=== PATIENT | male | born 1960 | race African-American/Black ===

== ENCOUNTER 2018-06-08 14:58 | Outpatient (CLI) | payer OTHER ==
--- NOTE | 2018-06-08 17:06 | ULT ---
RENAL SONOGRAM 06/08/18 HISTORY: Renal insufficiency. FINDINGS: The right kidney is 11.1 cm and left is 10.1 cm. each has a normal sonographic appearance without sumeet dence of mass, stone, or hydronephrosis. Urinary bladder is decompressed. IMPRESSION: No evidence of urinary tract obstruction. No significant abnormalities are demonstrated. POS: [facility]
== END 2018-06-08 14:59 | disposition home or self-care (01) ==
LOC: SCSULT 14:58
PROVIDERS: ATTEND Internal Medicine Nephrology
DX: N18.3 Chronic kidney disease, stage 3 (moderate) (principal)
CPT/HCPCS: 76770

== ENCOUNTER 2022-04-02 14:13 | Outpatient (CLI) | payer OTHER | END 2022-04-02 14:14 | disposition home or self-care (01) | LOC: BICRAD 14:13 | PROVIDERS: ATTEND Internal Medicine Cardiovascular Disease | DX: R06.02 Shortness of breath (principal); R91.8 Other nonspecific abnormal finding of lung field | CPT/HCPCS: 71046 ==

== ENCOUNTER 2022-06-15 15:57 | Observation (INO) | payer OTHER ==
[2022-06-15 16:59] VITALS: BMI 38.6
[2022-06-15] MEDS ORDERED: Communication Order-Pharmacy FS SCH (20:15)
[2022-06-15] MEDS: Sodium Chloride 0.9% 1,000 ML IV SCH (21:00)
[2022-06-16 03:05] LABS: SARS-CoV-2 NAA Rapid Test Not Detected (NotDetected)
[2022-06-16] MEDS: Sodium Chloride 0.9% 1,000 ML IV SCH ×2 (06:28→16:44)
[2022-06-16 08:12] LABS: ALT (SGPT) 30 U/L (8-55); AST (SGOT) 35 U/L (5-34); Albumin 3.7 g/dL (3.4-4.8); Alkaline Phosphatase 79 U/L (40-110); Anion Gap 16 mmol/L (10-20); BUN (Urea Nitrogen) 15 mg/dL (8.4-25.7); Bilirubin, Total 0.9 mg/dL (0.2-1.2); Calc. Creatinine Clearance 78 mL/min (70-130); Calcium 9.2 mg/dL (7.8-10.44); Carbon Dioxide 15 mmol/L (23-31); Chloride 110 mmol/L (98-107); Estimated GFR 40; Globulin 3.9 g/dL (2.4-3.5); Glucose 108 mg/dL (80-115); Potassium 4.6 mmol/L (3.5-5.1); Protein, Total 7.6 g/dL (5.8-8.1); Sodium 136 mmol/L (136-145)
[2022-06-16] MEDS ORDERED: Lidocaine 1% (PF) 30 ML VIAL ONE (08:29)
[2022-06-16] MEDS ORDERED: Verapamil 5 MG/2 ML VIAL ONE (08:29)
[2022-06-16] MEDS ORDERED: Lidocaine 1% PF 5 ML VIAL ONE (08:29)
[2022-06-16] MEDS ORDERED: Nitroglycerin 100MG/250ML BOT 250 ML ONE (08:29)
[2022-06-16] MEDS ORDERED: Heparin 10,000 UNITS/ 10 ML VIAL ONE (08:29)
[2022-06-16 08:30] LABS: #Basophils 0.1 thou/uL (0.0-0.2); #Eosinphils 0.3 thou/uL (0.0-0.7); #Lymphocytes 2.7 thou/uL (1.20-3.40); #Monocytes 0.6 thou/uL (0.11-0.59); #Neutrophils 2.5 thou/uL (1.40-6.50); %Basophils 1.3 % (0.0-1.0); %Eosinophils 5.1 % (0.0-10.0); %Lymphocytes 43.6 % (21.0-51.0); %Monocytes 8.9 % (0.0-10.0); %Neutrophils 41.1 % (42.0-75.0); Hemoglobin 13.9 g/dL (14.0-18.0); Mean Corpuscular HGB CONC 32.4 g/dL (32.0-36.0); Mean Corpuscular Hemoglobin 30.6 pg (27.0-31.0); Mean Corpuscular Volume 94.2 fl (78.0-98.0); Platelet Count 216 10x3/uL (130-400); RBC Distribution Width 13.5 % (11.5-14.5); Red Blood Cell (RBC) Count 4.55 mill/uL (4.70-6.10); White Blood Cell (WBC) Count 6.1 10x3/uL (4.8-10.8)
[2022-06-16] MEDS ORDERED: Valsartan 80 MG TAB PO SCH (09:00)
[2022-06-16] MEDS ORDERED: Atorvastatin Calcium 40 MG TAB PO SCH (09:00)
[2022-06-16] MEDS ORDERED: Isosorbide Dinitrate 20 MG TAB PO SCH (09:00)
[2022-06-16] MEDS ORDERED: Amlodipine 5 MG TAB PO SCH (09:00)
[2022-06-16] MEDS ORDERED: Multivitamin W/ Minerals 1 TAB PO SCH (09:00)
[2022-06-16] MEDS ORDERED: Aspirin 81 mg Enteric Coated Tablet PO SCH (09:00)
[2022-06-16] MEDS ORDERED: Allopurinol 300 MG TAB PO SCH (09:00)
[2022-06-16] MEDS ORDERED: Iopamidol 370 76% 100 ML VIAL ONE (09:16)
[2022-06-16] MEDS ORDERED: FENTANYL 50 MCG/ML 1 ML VIAL ONE (09:20)
[2022-06-16] MEDS ORDERED: Midazolam HCl 2 mg/2 ml Vial ONE (09:20)
[2022-06-16] MEDS ORDERED: Sodium Chloride 0.9% 200 ML IV PRN (10:14)
[2022-06-16] MEDS ORDERED: Acetaminophen/Codeine 30-300mg Tablet PO PRN (10:14)
[2022-06-16 19:44] VITALS: BP 133/79; TEMP 98
== END 2022-06-16 19:24 | disposition home or self-care (01) ==
LOC: 2NO 15:57 → INTOOBSV 15:57 → EDSTATUS 06-16 15:43
PROVIDERS: ADMIT Internal Medicine Cardiovascular Disease; ATTEND Internal Medicine Cardiovascular Disease
PROC: 4A023N7 Measurement of Cardiac Sampling and Pressure, Left Heart, Percutaneous Approach (ICD-10-PCS; principal; 2022-06-16)
PROC: B2111ZZ Fluoroscopy of Multiple Coronary Arteries using Low Osmolar Contrast (ICD-10-PCS; 2022-06-16)
DX: R94.39 Abnormal result of other cardiovascular function study (principal); R06.02 Shortness of breath; I25.10 Atherosclerotic heart disease of native coronary artery without angina pectoris; I12.9 Hypertensive chronic kidney disease with stage 1 through stage 4 chronic kidney disease, or unspecified chronic kidney disease; N18.30 Chronic kidney disease, stage 3 unspecified; M10.9 Gout, unspecified; G47.30 Sleep apnea, unspecified; E78.5 Hyperlipidemia, unspecified; Z79.82 Long term (current) use of aspirin; Z79.899 Other long term (current) drug therapy; Z20.822 Contact with and (suspected) exposure to COVID-19
CPT/HCPCS: 36415; 80053; 85025; 93458; 99152; C1769; C1894; G0378; J1644; J2001; J2250; J3010; J7050; Q9967; U0002

== ENCOUNTER 2022-08-10 18:00 | Outpatient (CLI) | payer OTHER | END 2022-08-10 18:01 | disposition home or self-care (01) | LOC: SLEEPLAB 18:00 | PROVIDERS: ATTEND Family Medicine | DX: G47.33 Obstructive sleep apnea (adult) (pediatric) (principal); R53.83 Other fatigue; E66.9 Obesity, unspecified; R06.83 Snoring; G47.00 Insomnia, unspecified; I25.10 Atherosclerotic heart disease of native coronary artery without angina pectoris; I10 Essential (primary) hypertension | CPT/HCPCS: 95800 ==

== ENCOUNTER 2022-10-21 19:30 | Outpatient (CLI) | payer OTHER | END 2022-10-21 19:31 | disposition home or self-care (01) | LOC: SLEEPLAB 19:30 → EDBD 19:30 → SLEEPLAB 19:31 | PROVIDERS: ATTEND Family Medicine | DX: G47.33 Obstructive sleep apnea (adult) (pediatric) (principal) | CPT/HCPCS: 95811 ==

== ENCOUNTER 2024-05-02 16:06 | Outpatient (CLI) | payer OTHER | END 2024-05-02 16:07 | disposition home or self-care (01) | LOC: SCSRAD 16:06 | PROVIDERS: ATTEND Family Medicine | DX: M46.1 Sacroiliitis, not elsewhere classified (principal); M47.816 Spondylosis without myelopathy or radiculopathy, lumbar region | CPT/HCPCS: 72120 ==